=== PATIENT | male | born 1985 | race Caucasian/White ===

== ENCOUNTER 2020-09-22 08:12 | Outpatient (REF) | payer OTHER, SELFPAY ==
[2020-09-22 10:50] LABS: Anion Gap 13 (12-20); Blood Urea Nitrogen 14 mg/dL (9-16); Carbon Dioxide 24 mmol/L (22-29); Chloride 103 mmol/L (96-108); Cholesterol 209 mg/dL; Estimated Glomerular Filt Rate > 60; Glucose Fasting 89 mg/dL (60-99); HDL Cholesterol 47 mg/dL; LDL Cholesterol Calculated 139 mg/dl; Potassium 4.4 mmol/l (3.3-5.1); Sodium 136 mmol/L (135-145); Triglycerides 115 mg/dL
== END 2020-09-22 08:13 | disposition home or self-care (01) ==
LOC: HO.10HDL 08:12
PROVIDERS: Visit Provider Family Medicine
DX: I10 Essential (primary) hypertension (principal); E78.00 Pure hypercholesterolemia, unspecified; Z83.3 Family history of diabetes mellitus
CPT/HCPCS: 36415; 80051; 80061; 82565; 82947; 84520

== ENCOUNTER 2021-09-07 10:24 | Outpatient (REF) | payer OTHER, SELFPAY ==
[2021-09-07 14:26] LABS: Anion Gap 10 (12-20); Blood Urea Nitrogen 14 mg/dL (9-16); Carbon Dioxide 30 mmol/L (22-29); Chloride 102 mmol/L (96-108); Estimated Glomerular Filt Rate > 60; Potassium 4.9 mmol/L (3.3-5.1); Sodium 137 mmol/L (135-145)
== END 2021-09-07 10:25 | disposition home or self-care (01) ==
LOC: HO.10HDL 10:24
PROVIDERS: Visit Provider Family Medicine
DX: I10 Essential (primary) hypertension (principal)
CPT/HCPCS: 36415; 80051; 82565; 84520

== ENCOUNTER 2022-09-12 10:17 | Outpatient (REF) | payer OTHER, SELFPAY ==
[2022-09-12 15:19] LABS: Anion Gap 15 (12-20); Blood Urea Nitrogen 14 mg/dL (9-16); Carbon Dioxide 25 mmol/L (22-29); Chloride 102 mmol/L (96-108); Estimated Glomerular Filt Rate > 60; Potassium 4.7 mmol/L (3.3-5.1); Sodium 137 mmol/L (135-145)
== END 2022-09-12 10:18 | disposition home or self-care (01) ==
LOC: HO.10HDL 10:17
PROVIDERS: Internal Medicine Medical Oncology; Visit Provider Family Medicine
DX: I10 Essential (primary) hypertension (principal)
CPT/HCPCS: 36415; 80051; 82565; 84520

== ENCOUNTER 2022-09-12 10:27 | Outpatient (REF) | payer OTHER, SELFPAY ==
--- NOTE | ~2022-09-12 | XR_ITS ---
EXAMINATION: XR KNEE, LEFT CLINICAL INFORMATION: Left knee pain. COMPARISON: None TECHNIQUE: Four views of the left knee. FINDINGS: Bones and soft tissues appear unremarkable. No fracture or joint effusion appreciated. Alignment is anatomic. Joint spaces are well maintained. No abnormal soft tissue calcification. XR/XR knee LT 4V IMPRESSION: Normal plain film examination of the left knee.
== END 2022-09-12 10:28 | disposition home or self-care (01) ==
LOC: HO.XRAY 10:27
PROVIDERS: PCP Family Medicine; Visit Provider Family Medicine
DX: M25.562 Pain in left knee (principal)
CPT/HCPCS: 73564

== ENCOUNTER 2023-04-20 10:40 | Emergency (ER) | payer OTHER, SELFPAY ==
[2023-04-20 11:40] VITALS: BP 135/74; PULSE 61; RESP 17; TEMP 36.4; O2SAT 97; BMI 35.7
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
== END 2023-04-20 12:08 | disposition home or self-care (01) ==
PROVIDERS: Emergency Provider Emergency Medicine Emergency Medical Services; PCP Family Medicine
DX: S13.4XXA Sprain of ligaments of cervical spine, initial encounter (principal); M54.50 Low back pain, unspecified; V43.52XA Car driver injured in collision with other type car in traffic accident, initial encounter; Y93.9 Activity, unspecified; Y92.410 Unspecified street and highway as the place of occurrence of the external cause; Y99.9 Unspecified external cause status
CPT/HCPCS: 99282; 99283

== ENCOUNTER 2023-05-04 08:57 | Outpatient (REF) | payer OTHER, SELFPAY ==
[2023-05-04 10:52] LABS: Anion Gap 10 (12-20); Blood Urea Nitrogen 10 mg/dL (9-16); Carbon Dioxide 25 mmol/L (22-29); Chloride 106 mmol/L (96-108); Cholesterol 193 mg/dL (<200); Estimated Glomerular Filt Rate > 60; Glucose Fasting 97 mg/dL (60-99); HDL Cholesterol 46 mg/dL (>40); LDL Cholesterol Calculated 123 mg/dL (<100); Potassium 4.1 mmol/L (3.3-5.1); Sodium 137 mmol/L (135-145); Triglycerides 121 mg/dL (<150)
== END 2023-05-04 08:58 | disposition home or self-care (01) ==
LOC: HO.10HDL 08:57
PROVIDERS: Visit Provider Family Medicine
DX: I10 Essential (primary) hypertension (principal); E78.00 Pure hypercholesterolemia, unspecified
CPT/HCPCS: 36415; 80051; 80061; 82565; 82947; 84520

== ENCOUNTER 2023-10-12 10:40 | Outpatient (REF) | payer OTHER, SELFPAY ==
[2023-10-12 11:31] LABS: Anion Gap 10 (12-20); Blood Urea Nitrogen 15 mg/dL (9-16); Carbon Dioxide 26 mmol/L (22-29); Chloride 105 mmol/L (96-108); Estimated Glomerular Filt Rate > 60; Potassium 4.2 mmol/L (3.3-5.1); Sodium 137 mmol/L (135-145)
== END 2023-10-12 10:41 | disposition home or self-care (01) ==
LOC: HO.10HDL 10:40
PROVIDERS: Visit Provider Family Medicine
DX: I10 Essential (primary) hypertension (principal)
CPT/HCPCS: 36415; 80051; 82565; 84520

== ENCOUNTER 2024-05-09 09:16 | Outpatient (REF) | payer OTHER, SELFPAY ==
[2024-05-09 10:29] LABS: Alanine Aminotransferase 19 U/L (0-40); Albumin Level 4.4 g/dL (3.5-5.0); Alkaline Phosphatase 89 U/L (39-117); Anion Gap 13 (12-20); Aspartate Amino Transferase 17 U/L (5-37); Bilirubin Total 0.4 mg/dL (0.0-1.0); Blood Urea Nitrogen 12 mg/dL (9-16); Calcium 10.2 mg/dL (8.4-10.2); Carbon Dioxide 27 mmol/L (22-29); Chloride 106 mmol/L (96-108); Estimated Glomerular Filt Rate > 60; Glucose Random 76 mg/dL (60-115); Potassium 3.7 mmol/L (3.3-5.1); Sodium 142 mmol/L (135-145); Total Protein 7.4 g/dL (6.5-8.0)
== END 2024-05-09 09:17 | disposition home or self-care (01) ==
LOC: HO.LAB 09:16
PROVIDERS: PCP Family Medicine; Visit Provider Family Medicine
DX: I10 Essential (primary) hypertension (principal); E66.9 Obesity, unspecified
CPT/HCPCS: 36415; 80053

== ENCOUNTER 2024-12-26 11:38 | Outpatient (REF) | payer OTHER, SELFPAY ==
[2024-12-26 13:46] LABS: Anion Gap 12 (12-20); Blood Urea Nitrogen 14 mg/dL (9-16); Carbon Dioxide 25 mmol/L (22-29); Chloride 104 mmol/L (96-108); Estimated Glomerular Filt Rate > 60; Potassium 4.4 mmol/L (3.3-5.1); Sodium 137 mmol/L (135-145)
== END 2024-12-26 11:39 | disposition home or self-care (01) ==
LOC: HO.10HDL 11:38
PROVIDERS: Visit Provider Family Medicine
DX: I10 Essential (primary) hypertension (principal)
CPT/HCPCS: 36415; 80051; 82565; 84520

== ENCOUNTER 2025-03-02 12:50 | Outpatient (AMB) | payer OTHER, SELFPAY ==
[2025-03-02 13:06] VITALS: BP 120/76; PULSE 80; O2SAT 95; BMI 34.6
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
== END 2025-03-02 13:58 | disposition home or self-care (01) ==
LOC: HO.HSMS 12:51
PROVIDERS: PCP Family Medicine; Visit Provider Physician Assistant Medical
DX: G47.19 Other hypersomnia (principal); R29.6 Repeated falls
CPT/HCPCS: 99204

== ENCOUNTER → 2025-03-02 12:50 | Outpatient (BNVA) | payer OTHER, SELFPAY | PROVIDERS: PCP Family Medicine; Visit Provider Physician Assistant Medical | DX: R29.6 Repeated falls (principal); G47.19 Other hypersomnia; G47.9 Sleep disorder, unspecified | CPT/HCPCS: 99202 ==

== ENCOUNTER 2025-03-13 08:47 | Outpatient (REF) | payer OTHER, SELFPAY ==
--- NOTE | ~2025-03-13 | XR_ITS ---
CLINICAL HISTORY: R29.6 - Repeated falls Exam: AP, lateral, swimmer's lateral, and open-mouth odontoid views of the cervical spine. Comparison: None provided. Findings: Bony alignment of the cervical vertebral bodies is grossly anatomic. Please note that the cervicothoracic junction is not well visualized on the lateral view. Swimmer's lateral view was performed which demonstrates grossly anatomic alignment. However, there is poor bone detail at the cervicothoracic junction on the swimmer's lateral view. No prevertebral soft tissue swelling. No discrete fracture. Disc space heights are well preserved. Impression: No fracture identified given the limited visualization of the cervicothoracic junction. If there is appropriate clinical concern for fracture, CT of the cervical spine is suggested. This document has been electronically signed by: Toni Rocha MD on 03/14/2025 08:29:02
[2025-03-13 09:14] LABS: Hematocrit 42.6 % (42.0-52.0); Hemoglobin 14.6 g/dl (14.0-18.0); Mean Corpuscular HGB Conc 34.3 g/dl (31.0-36.0); Mean Corpuscular Hemoglobin 29.3 pg (27.0-33.0); Mean Corpuscular Volume 85.4 fL (80.0-98.0); NRBC Abs Auto 0.000 X10*3/uL (0.0-0.012); NRBC Pct Auto 0.0 /100WBC (0.0-0.2); Platelet Count 249 X10*3/uL (160-400); Red Blood Count 4.99 X10*6/uL (4.60-5.80); White Blood Count 8.4 X10*3/uL (4.8-10.8)
[2025-03-13 09:25] LABS: Hemoglobin A1C 130.3354 umol/L; Total Hemoglobin (HGBA1C) 3718.5994 umol/L
[2025-03-13 09:45] LABS: Alanine Aminotransferase 18 U/L (0-40); Albumin Level 4.5 g/dL (3.5-5.0); Alkaline Phosphatase 75 U/L (39-117); Anion Gap 10 (12-20); Aspartate Amino Transferase 20 U/L (5-37); Blood Urea Nitrogen 18 mg/dL (9-16); Calcium 9.2 mg/dL (8.4-10.2); Carbon Dioxide 26 mmol/L (22-29); Chloride 108 mmol/L (96-108); Estimated Glomerular Filt Rate > 60; Iron 72 mcg/dL (45-160); Percent Iron Saturation 30 % (15-50); Potassium 4.6 mmol/L (3.3-5.1); Sodium 139 mmol/L (135-145); Total Iron Binding Capacity 239 mcg/dL (228-428); Total Protein 7.3 g/dL (6.5-8.0); Unsaturated Iron Binding 167 ug/dL
[2025-03-13 10:06] LABS: Ferritin 159 ng/mL (20-250)
== END 2025-03-13 08:48 | disposition home or self-care (01) ==
LOC: HO.LAB 08:47
PROVIDERS: PCP Physician Assistant; Visit Provider Physician Assistant Medical
DX: G47.19 Other hypersomnia (principal); R53.83 Other fatigue; G47.9 Sleep disorder, unspecified; R29.6 Repeated falls
CPT/HCPCS: 36415; 72040; 80053; 82306; 82728; 83036; 83090; 83540; 83921; 84443; 85027

== ENCOUNTER → 2025-03-13 09:03 | Outpatient (BNV) | payer OTHER, SELFPAY | PROVIDERS: PCP Physician Assistant; Visit Provider Radiology Diagnostic Radiology | DX: R29.6 Repeated falls (principal) | CPT/HCPCS: 72040 ==

== ENCOUNTER 2025-03-24 17:08 | Emergency (ER) | payer OTHER, SELFPAY ==
[2025-03-24] VITALS (10 sets, daily range): BP systolic 120–166; BP diastolic 51–83; PULSE 70–98; RESP 16–20; TEMP 37.3–38.3; O2SAT 93–97; BMI 32.9
--- NOTE | ~2025-03-24 | XR_ITS ---
CLINICAL HISTORY: shortness of breath, cough Two views of the chest. COMPARISON: None provided. FINDINGS: Normal heart and mediastinal contours. Airspace opacity within the right lower lobe. No pleural effusion or pneumothorax. No fracture identified. IMPRESSION: 1. Right lower lobe pneumonia. This document has been electronically signed by: Reinier Yang MD on 03/24/2025 18:20:20
--- NOTE | 2025-03-24 17:46 | ED.GENADULT ---
HPI - General Adult General Chief complaint: Upper Respiratory Symptoms Stated complaint: flu like symptoms/high fever Time Seen by Provider: 03/24/25 18:17 Source: patient Limitations: no limitations History of Present Illness ED Provider: Diamond Farah PA-C HPI narrative: 39-year-old male with a history of hypertension presents with fever. Patient states he has been feeling poorly over the past week, associated dry repetitive cough, nausea vomiting at times, fever and generalized malaise. Patient was seen at urgent care yesterday, found to have pneumonia, he was placed on doxycycline. Patient states his fevers have been refractory, noting fevers of 103 at home, he is also not tolerating the doxycycline, it triggers vomiting. Patient denies history of asthma or COPD, no tobacco abuse history. Related Data Home Medications ?Medication ?Instructions ?Recorded ?Confirmed lisinopril 20 mg tablet 20 mg PO DAILY 02/23/25 03/24/25 lorazepam 0.5 mg tablet (Ativan) 0.5 mg PO Q8H PRN Anxiety 02/23/25 03/24/25 betamethasone dipropionate 0.05 % 1 appl topical BID 03/24/25 03/24/25 topical cream doxycycline hyclate 100 mg capsule 100 mg PO BID 03/24/25 03/24/25 ondansetron 4 mg disintegrating 4 mg PO Q8H PRN Nausea 03/24/25 03/24/25 tablet Previous Rx's ?Medication ?Instructions ?Recorded azithromycin 250 mg tablet 250 mg PO DAILY 4 days #4 tabs 03/24/25 cefuroxime axetil 500 mg tablet 500 mg PO Q12H #20 tabs 03/24/25 codeine 10 mg-guaifenesin 100 mg/5 10 ml PO Q4-6H PRN cough #120 mL 03/24/25 mL oral liquid (Guaifenesin AC) ondansetron 4 mg disintegrating 4 mg PO Q8H PRN nausea and 03/24/25 tablet vomiting #10 tabs Allergies Allergy/AdvReac Type Severity Reaction Status Date / Time No Known Allergies Allergy Verified 03/24/25 17:44 [facility] Past Medical History Medical History Pure hypercholesterolemia, unspecified Essential (primary) hypertension Obesity, unspecified Solitary pulmonary nodule Panic disorder [episodic paroxysmal anxiety] Other migraine, not intractable, without status migrainosus Other synovitis and tenosynovitis, left shoulder Gastro-esophageal reflux disease without esophagitis Ophthalmoplegic migraine, not intractable Calcaneal spur, right foot Dorsalgia, unspecified Morbid (severe) obesity due to excess calories Social History Social History Advance Directives: No Advance Directives Information Provided: No Do you have a plan to hurt others: No Plan Physical Exam ED Vital Signs: Vital Signs - 24 hr 03/24/25 17:42 03/24/25 18:40 03/24/25 18:56 Temperature 100.9 F H 99.6 F 100.5 F H Pulse Rate 98 83 81 Respiratory Rate 20 16 18 Blood Pressure 166/78 H 126/80 132/74 Pulse Oximetry 93 94 95 Oxygen Delivery Method Room Air Room Air Room Air 03/24/25 20:11 03/24/25 20:26 03/24/25 20:41 Temperature 99.1 F Pulse Rate 72 71 70 Respiratory Rate 16 16 16 Blood Pressure 137/81 123/81 138/83 Pulse Oximetry 95 97 97 Oxygen Delivery Method Room Air Room Air Room Air 03/24/25 20:56 03/24/25 21:04 Temperature Pulse Rate 73 70 Respiratory Rate 16 16 Blood Pressure 120/51 L 125/76 Pulse Oximetry 96 96 Oxygen Delivery Method Room Air Room Air BMI result Body Mass Index 32.9 Course Course Course Narrative: This is an RME performed by Donnie Ahuja CNP: Additional HPI, ROS, PE not included below will be deferred to primary provider. Patient is a 39-year-old male who presents emergency department for evaluation. With a past 4 days has been feeling generally unwell, started with a fever, symptoms continued on having cough, shortness of breath, posttussive emesis. He went to urgent care yesterday tested negative for COVID and flu, was advised that he has pneumonia based on CXR, has taken 3 doses of doxycycline. He states he has not been able to drink much water without vomiting. Expresses concern regarding his fevers, has had temp picture as high as 103.8, reports an hour after with the Tylenol it is only down 1 degree and then 2 hours later it is back up to <102, doesnt think the fever has broken. Took acetaminophen at 16:00, ibuprofen at 10:00 Patient meeting SIRS criteria, lactic acid and blood cultures to be obtained in addition to serum labs, repeat CXR, charge histotechnologist made aware, Reevaluation(s) Reevaluation #1: At 6:29 p.m. on March 24 of the sepsis focused exam was performed, in addition to screening labs, blood cultures lactic were obtained chest x-ray already completed, we will start fluids, giving Toradol for fever, adding azithromycin and ceftriaxone Time: 18: Reevaluation #2: ambulated the patient, no drop in o2 Medications Administered Discontinued Medications Generic Name Dose Route Start Last Admin Trade Name Freq PRN Reason Stop Dose Admin Ceftriaxone Sodium 2 gm 03/24/25 18:03/24/25 18:40 Ceftriaxone Sodium 2 Gm Vial IVPUSH 03/24/25 18:30 2 gm ONCE ONE Administration Sodium Chloride 1,000 mls @ 999 mls/hr 03/24/25 18:30 03/24/25 19:40 Ns IV 03/24/25 19:30 Infused .Q1H1M BILL Infusion Azithromycin 500 mg/ Sodium 250 mls @ 125 mls/hr 03/24/25 18:29 03/24/25 20:47 Chloride IV 03/24/25 20:28 Infused ONCE ONE Infusion Ibuprofen 600 mg 03/24/25 17:50 03/24/25 18:22 Ibuprofen 600 Mg Tablet PO 03/24/25 17:51 600 mg ONCE ONE Administration Ketorolac Tromethamine 15 mg 03/24/25 18:29 03/24/25 18:39 Ketorolac Tromethamine 15 Mg/Ml Vial IVPUSH 03/24/25 18:30 15 mg ONCE ONE Administration Medical Decision Making Medical Decision Making [facility] Narrative: 39-year-old male with a history of hypertension presents with fever. Patient states he has been feeling poorly over the past week, associated dry repetitive cough, nausea vomiting at times, fever and generalized malaise. Patient was seen at urgent care yesterday, found to have pneumonia, he was placed on doxycycline. Patient states his fevers have been refractory, noting fevers of 103 at home, he is also not tolerating the doxycycline, it triggers vomiting. Patient denies history of asthma or COPD, no tobacco abuse history. No relevant chronic issues History: Per patient I have considered the following differential diagnoses: Pneumonia, bronchitis, viral syndrome, sepsis Plan: Patient already has no pneumonia, he is febrile here in the ER 100.9, sepsis of concern, in addition to screening labs, blood cultures and lactic were obtained, the chest x-ray does already complete. We will be giving IV fluid, Toradol as he already had Tylenol pre arrival, starting azithromycin and ceftriaxone. I do not foresee him requiring admission given he is a young healthy individual who was not immunocompromised. We will reassess once IV therapy is complete. I have independently reviewed the following tests: Labs: No overall leukocytosis, left shift noted, not anemic, no electrolyte abnormality, lactic 1.2 Chest x-ray: FINDINGS: Normal heart and mediastinal contours. Airspace opacity within the right lower lobe. No pleural effusion or pneumothorax. No fracture identified. IMPRESSION: 1. Right lower lobe pneumonia. EKG: Normal sinus rhythm rate of 91, no ischemic changes no ectopy QTC 415 Lab Data 03/24/25 18:14 03/24/25 18:14 Labs: Lab Results 03/24/25 Range/Units 18:14 WBC 7.3 (4.8-10.8) X10*3/uL RBC 4.92 (4.60-5.80) X10*6/uL Hgb 14.3 (14.0-18.0) g/dl Hct 41.1 L (42.0-52.0) % MCV 83.5 (80.0-98.0) fL MCH 29.1 (27.0-33.0) pg MCHC 34.8 (31.0-36.0) g/dl RDW 13.2 (11.0-16.0) % Plt Count 245 (160-400) X10*3/uL MPV 9.8 (9.4-12.4) fL Immature Gran % (Auto) 1.6 H (0.0-0.4) % Neut % (Auto) 75.6 H (45-73) % Lymph % (Auto) 12.0 L (20-40) % Ward % (Auto) 8.9 (2-11) % Eos % (Auto) 1.5 (0-4) % Baso % (Auto) 0.4 (0-2) % Lymph # (Auto) 0.9 L (1.2-4.9) X10*3/uL Ward # (Auto) 0.7 (0.1-1.2) X10*3/uL Eos # (Auto) 0.1 (0.0-0.4) X10*3/uL Baso # (Auto) 0.0 (0.0-0.2) X10*3/uL Abs Immat Gran (auto) 0.12 H (0.00-0.03) X10*3/uL Absolute Neuts (auto) 5.6 (2.0-8.3) x10*3/uL Absolute Nucleated RBC 0.000 (0.0-0.012) X10*3/uL Nucleated RBC % (auto) 0.0 (0.0-0.2) /100WBC Sodium 136 (135-145) mmol/L Potassium 3.5 D (3.3-5.1) mmol/L Chloride 103 (96-108) mmol/L Carbon Dioxide 23 (22-29) mmol/L Anion Gap 14 (12-20) BUN 18 H (9-16) mg/dL Creatinine 0.86 (0.5-1.4) mg/dL Estim Creat Clear Calc 124.3 Estimated GFR > 60 Random Glucose 119 H (60-115) mg/dL Lactic Acid 1.2 (0.5-2.0) mmol/L Calcium 9.6 (8.4-10.2) mg/dL Magnesium 2.2 (1.6-2.6) mg/dL Total Bilirubin 0.3 (0.0-1.0) mg/dL AST 28 (5-37) U/L ALT 22 (0-40) U/L Alkaline Phosphatase 81 (39-117) U/L Troponin I High Sens 3.7 (<3.5-35.0) ng/L Total Protein 7.3 (6.5-8.0) g/dL Albumin 4.0 (3.5-5.0) g/dL Lipase 33 (8-78) U/L Discharge Plan Discharge Clinical Impression: Pneumonia Patient Disposition: Home, Self-Care Instructions: Community Acquired Pneumonia (ED) Additional Instructions: You were found to have a right lower lobe pneumonia. See home care instructions. Use the azithromycin as directed, use the cefuroxime seen as directed, complete the course of each antibiotic. Discontinue the use of the doxycycline. Uses Zofran as needed for nausea. Use the cough syrup as needed as a cough suppressant and expectorant. Follow up with your primary care provider as needed Prescriptions: New cefuroxime axetil 500 mg tablet 500 mg PO Q12H Qty: 20 0RF azithromycin 250 mg tablet 250 mg PO DAILY 4 Days Qty: 4 0RF Rx Instructions: start on day 2 of therapy ondansetron 4 mg tablet,disintegrating 4 mg PO Q8H PRN (Reason: nausea and vomiting) Qty: 10 0RF codeine-guaifenesin [Guaifenesin AC] 10-100 mg/5 mL liquid 10 ml PO Q4-6H PRN (Reason: cough) Qty: 120 0RF No Action doxycycline hyclate 100 mg capsule 100 mg PO BID betamethasone dipropionate 0.05 % cream 1 appl topical BID ondansetron 4 mg tablet,disintegrating 4 mg PO Q8H PRN (Reason: Nausea) lisinopril 20 mg tablet 20 mg PO DAILY lorazepam [Ativan] 0.5 mg tablet 0.5 mg PO Q8H PRN (Reason: Anxiety) Print Language: Sinhala
--- NOTE | 2025-03-24 17:50 | ECG_ITS ---
Test Reason : sob Blood Pressure : */* mmHG Vent. Rate : 91 BPM Atrial Rate : 91 BPM P-R Int : 158 ms QRS Dur : 106 ms QT Int : 338 ms P-R-T Axes : 44 8 14 degrees QTcB Int : 415 ms Normal sinus rhythm Possible Left atrial enlargement Borderline ECG No previous ECGs available Referred By: Becky Ahuja Electronically Signed By: CEE MODI MD
[2025-03-24 18:22] LABS: MANUAL DIFF FLAG NO
[2025-03-24 18:24] LABS: Hematocrit 41.1 % (42.0-52.0); Hemoglobin 14.3 g/dl (14.0-18.0); Imm Gran Abs Auto 0.12 X10*3/uL (0.00-0.03); Imm Gran Pct Auto 1.6 % (0.0-0.4); Lymphocytes Absolute Auto 0.9 X10*3/uL (1.2-4.9); Mean Corpuscular HGB Conc 34.8 g/dl (31.0-36.0); Mean Corpuscular Hemoglobin 29.1 pg (27.0-33.0); Mean Corpuscular Volume 83.5 fL (80.0-98.0); NRBC Abs Auto 0.000 X10*3/uL (0.0-0.012); NRBC Pct Auto 0.0 /100WBC (0.0-0.2); Platelet Count 245 X10*3/uL (160-400); Red Blood Count 4.92 X10*6/uL (4.60-5.80); White Blood Count 7.3 X10*3/uL (4.8-10.8)
[2025-03-24 18:50] LABS: Alanine Aminotransferase 22 U/L (0-40); Albumin Level 4.0 g/dL (3.5-5.0); Alkaline Phosphatase 81 U/L (39-117); Anion Gap 14 (12-20); Aspartate Amino Transferase 28 U/L (5-37); Blood Urea Nitrogen 18 mg/dL (9-16); Calcium 9.6 mg/dL (8.4-10.2); Carbon Dioxide 23 mmol/L (22-29); Chloride 103 mmol/L (96-108); Creatinine Clr Calc Pharmacy 124.3; Estimated Glomerular Filt Rate > 60; Lipase 33 U/L (8-78); Magnesium 2.2 mg/dL (1.6-2.6); Potassium 3.5 mmol/L (3.3-5.1); Sodium 136 mmol/L (135-145); Total Protein 7.3 g/dL (6.5-8.0)
[2025-03-24 21:27] LABS: Troponin-I High Sensitivity 3.7 ng/L (<3.5-35.0)
--- NOTE | 2025-03-24 21:42 | PC.NURSE ---
TRISTIN Farah speaking with patient and family at this time.
[2025-03-24] MEDS: guaiFEN/Codeine SF 200/20/10ML 10 ML LIQUID PO (21:55)
== END 2025-03-24 22:01 | disposition home or self-care (01) ==
PROVIDERS: Nurse Practitioner Family; Physician Assistant Medical; Emergency Provider Emergency Medicine; PCP Physician Assistant
DX: J18.9 Pneumonia, unspecified organism (principal); R50.9 Fever, unspecified; R05.9 Cough, unspecified; R11.2 Nausea with vomiting, unspecified; I10 Essential (primary) hypertension; E78.00 Pure hypercholesterolemia, unspecified; Z79.899 Other long term (current) drug therapy
CPT/HCPCS: 36415; 71046; 80053; 83605; 83690; 83735; 84484; 85025; 87040; 93005; 96361; 96365; 96375; 99284; J0456; J0696; J1885

== ENCOUNTER → 2025-03-24 17:50 | Outpatient (BNV) | payer OTHER, SELFPAY | PROVIDERS: Emergency Provider Emergency Medicine; PCP Physician Assistant; Visit Provider Internal Medicine Cardiovascular Disease | DX: R06.02 Shortness of breath (principal) | CPT/HCPCS: 93010 ==

== ENCOUNTER → 2025-03-24 17:51 | Outpatient (BNV) | payer OTHER, SELFPAY | PROVIDERS: Emergency Provider Emergency Medicine; PCP Physician Assistant; Visit Provider Radiology Diagnostic Radiology | DX: J18.1 Lobar pneumonia, unspecified organism (principal) | CPT/HCPCS: 71046 ==

== ENCOUNTER 2025-04-28 08:23 | Outpatient (REF) | payer OTHER, SELFPAY ==
--- NOTE | 2025-04-28 08:23 | EMG_ITS ---
Bilateral median and ulnar motor and sensory studies were performed bilateral radial sensory study was performed and bilateral median and lateral antecubital brachial sensory studies were performed. EMG needle examination was performed. Impression: 1. Mild bilateral ulnar neuropathy across cubital tunnel 2. No evidence of median neuropathy MTDD
== END 2025-04-28 08:24 | disposition home or self-care (01) ==
LOC: HO.NEURO 08:23
PROVIDERS: PCP Physician Assistant; Visit Provider Physician Assistant Medical
DX: G56.23 Lesion of ulnar nerve, bilateral upper limbs (principal); R20.0 Anesthesia of skin
CPT/HCPCS: 95886; 95913

== ENCOUNTER → 2025-04-28 08:23 | Outpatient (BNV) | payer OTHER, SELFPAY | PROVIDERS: PCP Physician Assistant; Visit Provider Psychiatry & Neurology Neurology | DX: G56.23 Lesion of ulnar nerve, bilateral upper limbs (principal) | CPT/HCPCS: 95886; 95912 ==

== ENCOUNTER 2025-05-01 08:04 | Outpatient (AMB) | payer OTHER, SELFPAY ==
--- NOTE | 2025-05-01 08:15 | MHC.PC.OV ---
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 Accompanied by: Self / Same As Patient Allergies No Known Allergies Allergy (Verified 05/01/25 08:16) Tobacco use date assessed: 05/01/25 Dental Screening Dental Screen Date: 05/01/25 Did you have a dental visit in the last 12 months?: No Did you have a dental problem in the last 6 months where you did not have access to dental care?: No Was dental information given to patient?: No HPI HPI Comments History of Present Illness Details 39-year-old male with history of hypertension, migraines, pulmonary nodule, GERD, anxiety, obesity presents to the office today for management of chronic conditions and to establish care. Anxiety-managed with lorazepam p.r.n. Very rare, can be seasonal/work related when slow and idle. Hypertension-managed with lisinopril 20 mg daily. Blood pressure in the office 140/84, recheck 120/80 Pulmonary nodule- 15 years ago, seen on CT for nephrolithiasis. 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 Follows a healthy diet. Not losing weight. Concerns: Insomnia- sleep study pending. Intermittent. His neurologist is working up for sleep apnea. He does endorse intermittent sleeping as well as intermittent apneic episodes. Not interested in medications at this time Health maintenance: Colonoscopies was started age 43 ROS: See HPI EXAM: Constitutional - Awake and Alert, No apparent distress Eyes - PERRL Mouth/throat-left tonsil with 3-4 +enlargement. Right tonsil 1+ Cardiovascular - S1S2, RRR, No edema Respiratory - Normal lung expansion, Normal respiratory effort, No respiratory distress, CTA bilaterally Extremities - no calf tenderness bilaterally, no swelling Skin - Warm/Dry Neurological - Alert & oriented x3 Psychological - Appropriate affect [facility] Medical History (Updated 05/01/25 @ 08:45 by RTISTIN Busby) Pure hypercholesterolemia, unspecified Essential (primary) hypertension Obesity, unspecified Solitary pulmonary nodule Panic disorder [episodic paroxysmal anxiety] Other migraine, not intractable, without status migrainosus Other synovitis and tenosynovitis, left shoulder Gastro-esophageal reflux disease without esophagitis Ophthalmoplegic migraine, not intractable Calcaneal spur, right foot Dorsalgia, unspecified Morbid (severe) obesity due to excess calories Social History Housing: House Patient Tobacco Use Status: Never used Tobacco e-Cigarette/Vaping Use: Never Used service: No Current occupational status: employed Cognitive needs: No Hearing needs: No Vision needs: No Questionnaire PHQ-9 Over the last 2 weeks, how often have you been bothered by any of the following problems? 1. Little interest or pleasure in doing things: not at all 2. Feeling down, depressed, or hopeless: not at all 3. Trouble falling or staying asleep, or sleeping too much: several days 4. Feeling tired or having little energy: several days 5. Poor appetite or overeating: not at all 6. Feeling bad about yourself - or that you are a failure or have let yourself or your family down: not at all 7. Trouble concentrating on things, such as reading the newspaper or watching television: not at all 8. Moving or speaking so slowly that other people could have noticed. Or the opposite - being so fidgety or restless that you have been moving around a lot more than usual: not at all 9. Thoughts that you would be better off or of hurting yourself in some way: not at all Total score: 2 Source: Developed by Drs. Olvin Llanos, Niya Vizcaino, Naif Barclay and colleagues, with an educational jose from [employer]. Thrive Questionnaire Date Thrive assessed: 05/01/25 I am a: Patient What is your living situation today?: I have a steady place to live Within the past 12 months, did the food you bought not last and you didn't have the money to get more?: Never true Within the past 12 months, did you worry whether your food would run out before you got money to buy more?: Never true Do you have trouble paying for medicines?: No Do you have trouble getting transportation to medical appointments?: No Do you have trouble paying your heating and electricity bill?: No Do you have trouble taking care of your child, family member or friend?: No Do you have trouble with day-to-day activities such as bathing, preparing meals, shopping, managing finances, etc.?: No Are you currently unemployed and looking for a job?: No Are you interested in more education?: No Please select the resources that you would like help with: None THRIVE Score: 0 GENEVA-7 AMB Questionnaire GENEVA-7 Date GENEVA - 7 assessed: 05/01/25 Feeling nervous, anxious, or on edge: 0 = Not at all Not being able to stop or control worryin = Not at all Worrying too much about different things: 0 = Not at all Trouble relaxin = Several days Being so restless that it is hard to sit still: 1 = Several days Becoming easily annoyed or irritable: 0 = Not at all Feeling afraid as if something awful might happen: 0 = Not at all Total GENEVA-7 score (0-4 normal; 5-9 mild; 10-14 moderate; 15-21 severe): 2 Source: Developed by Drs. Olvin Llanos, Niya Vizcaino, Naif Barclay and colleagues, with an educational jose from [employer]. Physical exam (Primary Care) Vital Signs: Last Vital Signs Temp 98.3 F 05/01/25 08:21 Pulse 70 05/01/25 08:21 BP 140/84 H 05/01/25 08:21 Pulse Ox 98 05/01/25 08:21 Oxygen Delivery Method Room Air 05/01/25 08:21 BMI result Body Mass Index 34.5 Tobacco/Smoking Status: Tobacco use Status Tobacco use date assessed 05/01/25 05/01/25 08:27 Patient Tobacco Use Status Never used Tobacco 05/01/25 08:27 e-Cigarette/Vaping Use Never Used 05/01/25 08:27 PHQ-9: PHQ-9 Score PHQ-9: Total score 2 05/01/25 08:27 Thrive Assessment: Date of Thrive Assessment Date Thrive assessed 05/01/25 05/01/25 08:27 Coding Level of Care Code New Pt Level 4 (46984) Diagnoses Panic disorder [episodic paroxysmal anxiety] F41.0 Essential (primary) hypertension I10 Obesity, unspecified E66.9 Excessive daytime sleepiness G47.19 Assessment & Plan Assessment & Plan (1) Panic disorder [episodic paroxysmal anxiety]: Code(s): F41.0 - Panic disorder [episodic paroxysmal anxiety] Category: Medical Plan: Overall stable, seasonal. Can use lorazepam as needed (2) Essential (primary) hypertension: Code(s): I10 - Essential (primary) hypertension Category: Medical Plan: Controlled on recheck. Continue lisinopril 20 mg daily (3) Obesity, unspecified: Code(s): E66.9 - Obesity, unspecified Category: Medical Plan: Continue with healthy lifestyle, regular exercise and healthy diet (4) Excessive daytime sleepiness: Code(s): G47.19 - Other hypersomnia Category: Medical Plan: Awaiting results of sleep study. Should sleep study be negative, can refer to ENT given tonsillitis. Declines sleep medication at this time, consider in the future Plan Follow-up in 6 months with labs completed prior to visit Orders: Orders Basic Metabolic Panel 6 Months E66.9 - Obesity, unspecified, I10 - Essential (primary) hypertension Lipid Panel 6 Months E66.9 - Obesity, unspecified, I10 - Essential (primary) hypertension Liver Panel 6 Months E66.9 - Obesity, unspecified, I10 - Essential (primary) hypertension IRON PROFILE 6 Months E66.9 - Obesity, unspecified, I10 - Essential (primary) hypertension TSH reflex Free T4 6 Months E66.9 - Obesity, unspecified, I10 - Essential (primary) hypertension
[2025-05-01 08:21] VITALS: BP 140/84; PULSE 70; TEMP 36.8; O2SAT 98; BMI 34.5
[2025-05-01 08:41] VITALS: BP 120/80
== END 2025-05-01 08:46 | disposition home or self-care (01) ==
LOC: HO.HMCHD 08:05
PROVIDERS: PCP Family Medicine; Visit Provider Physician Assistant
DX: F41.0 Panic disorder [episodic paroxysmal anxiety] (principal); I10 Essential (primary) hypertension; E66.9 Obesity, unspecified; G47.19 Other hypersomnia

== ENCOUNTER → 2025-05-01 08:04 | Outpatient (BNVA) | payer OTHER, SELFPAY | PROVIDERS: PCP Family Medicine; Visit Provider Physician Assistant | DX: F41.0 Panic disorder [episodic paroxysmal anxiety] (principal); I10 Essential (primary) hypertension; E66.9 Obesity, unspecified; Z68.34 Body mass index [BMI] 34.0-34.9, adult; G47.19 Other hypersomnia; Z79.899 Other long term (current) drug therapy; Z13.31 Encounter for screening for depression; Z13.39 Encounter for screening examination for other mental health and behavioral disorders | CPT/HCPCS: 99202 ==

== ENCOUNTER 2025-06-02 07:55 | Outpatient (AMB) | payer OTHER, SELFPAY ==
--- NOTE | 2025-06-02 08:02 | MHC.OFFVIS ---
Vital Signs 06/02/25 08:03 Height 5 ft 7 in Weight 223 lb 4 oz BMI 35.0 BP 128/88 Blood Pressure Location Rt brachial Position Sitting Pulse 71 Pulse Source Pulse Oximeter Pulse Oximetry (%) 96 Oxygen Delivery Method Room Air Intake Visit Reasons: 3 mo follow up Intake Note: Patient presents follow up KARYNA. Labs/x-ray in chart. No-showed HST 05/14. Patient states he tried calling but no calls back. Accompanied by: Self / Same As Patient Allergies No Known Allergies Allergy (Verified 06/02/25 08:05) HPI Comments Details: 39 year old male with chronic fatigue, referred to us for sleep apnea evaluation by his PCP. 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 arm crush injury, radius and ulnar compound fracture, ORIF with plates, rods, and pins placed. He feels exhausted daily, he goes to bed at 9:30, wakes up at 5am with zero bathroom breaks. He wakes up several times a night as he is a light sleeper and has difficulty going back to sleep. His tells him, he snores loudly and gasps for air when sleeping on his back. He would like to be evaluated by ENT due to large tonsils. He denies morning headaches, denies bruxism. memory is stable. He has a h/o panic attacks and anxiety which have significantly improved, he takes Ativan 0.5mg po maybe 1-2x/ month. BP is well controlled with lisinopril. He has RLS symptoms, paresthesias and an urge to move his legs at night due to discomfort and a sensation which crawls up his thighs. He has bilateral paresthesias of the arms and cubital tunnel syndrome r>l. He wakes up with both his arms numb and tingling. Inspite of living an active lifestyle, eating a clean diet, cooking at home, drinking lots of water, he can not lose weight. [facility] Medical History Pure hypercholesterolemia, unspecified Essential (primary) hypertension Obesity, unspecified Solitary pulmonary nodule Panic disorder [episodic paroxysmal anxiety] Other migraine, not intractable, without status migrainosus Other synovitis and tenosynovitis, left shoulder Gastro-esophageal reflux disease without esophagitis Ophthalmoplegic migraine, not intractable Calcaneal spur, right foot Dorsalgia, unspecified Morbid (severe) obesity due to excess calories Social History Housing: House Patient Tobacco Use Status: Never used Tobacco e-Cigarette/Vaping Use: Never Used service: No Current occupational status: employed Cognitive needs: No Hearing needs: No Vision needs: No Physical Exam Vital Signs: Last Vital Signs Pulse 71 06/02/25 08:03 BP 128/88 06/02/25 08:03 Pulse Ox 96 06/02/25 08:03 Oxygen Delivery Method Room Air 06/02/25 08:03 BMI result Body Mass Index 35.0 Const General: cooperative, comfortable and no acute distress Nutritional Appearance: obese Orientation/consciousness: patient oriented x3 HEENT Face and sinus: Yes face symmetric Teeth and gingiva: other (Mallampti score 4) Eyes Pupils: Equal, round and reactive pupils present Neck Neck: Yes full ROM Resp Effort & Inspection: normal respiratory effort and able to speak in complete sentences Neuro General: patient oriented x3 and moves all extremities Cranial nerves: Yes Equal, round and reactive pupils present, Yes Normal accommodation reflex present, Yes Nystagmus not present, Yes Normal facial strength present, Yes Midline tongue present, Yes Ability to bilaterally rotate head present (ROM limited r>l) and Yes Ability to bilaterally elevate shoulders present Cognition (Neuro): normal cognition Gait exam (Neuro): Normal gait present Motor exam (neuro): 5/5 motor strength present throughout and Normal motor muscle tone present throughout Psych Appearance: grossly normal Speech and movement: Normal speech and movement present Attitude: cooperative Insight: Good insight present (Psych) Judgement: Good judgement present (Psych) Results Reviewed Results Reviewed: We reviewed labs today. NCS / EMG Impression: 1. Mild bilateral ulnar neuropathy across cubital tunnel 2. No evidence of median neuropathy Assessment & Plan Assessment & Plan (1) Excessive daytime sleepiness: Code(s): G47.19 - Other hypersomnia Category: Medical (2) Loud snoring: Code(s): R06.83 - Snoring Category: Medical (3) Multiple falls: Code(s): R29.6 - Repeated falls Category: Medical (4) Low vitamin D level: Code(s): R79.89 - Other specified abnormal findings of blood chemistry Category: Medical (5) Chronic fatigue: Code(s): R53.82 - Chronic fatigue, unspecified Category: Medical Plan EMG / NCS reviewed with pt. Ulnar Neuropathy, he has wrist braces and will consider PT in the future. HST to r/o karyna Labs reviewed with pt. ENT evaluation Snoring due to enlarged tonsils RLS? Sciatica will monitor f/u in 2 months Orders: Orders Vitamin B12 and Folate Today R53.82 - Chronic fatigue, unspecified Homocysteine Today G47.9 - Sleep disorder, unspecified, R53.82 - Chronic fatigue, unspecified, R53.83 - Other fatigue RT home sleep study Today G47.19 - Other hypersomnia TSH reflex Free T4 Today R53.82 - Chronic fatigue, unspecified Methylmalonic Acid Today G47.9 - Sleep disorder, unspecified, R53.82 - Chronic fatigue, unspecified, R53.83 - Other fatigue Referrals Ear/Nose/Throat Referral G47.30 - Sleep apnea, unspecified, R06.83 - Snoring Medications: New cholecalciferol (vitamin D3) 50 mcg PO DAILY 120 caps 2RF low vitamin d levles 4 months MDD 50mcg R79.89 - Other specified abnormal findings of blood chemistry Coding Level of Care Code Est Pt Level 4 (71913) Diagnoses Excessive daytime sleepiness G47.19 Loud snoring R06.83 Multiple falls R29.6 Low vitamin D level R79.89 Chronic fatigue R53.82
[2025-06-02 08:03] VITALS: BP 128/88; PULSE 71; O2SAT 96; BMI 35.0
== END 2025-06-02 08:38 | disposition home or self-care (01) ==
LOC: HO.HSMS 07:55
PROVIDERS: PCP Family Medicine; Visit Provider Physician Assistant Medical
DX: G47.19 Other hypersomnia (principal); R06.83 Snoring; R29.6 Repeated falls; R79.89 Other specified abnormal findings of blood chemistry; R53.82 Chronic fatigue, unspecified
CPT/HCPCS: 99214

== ENCOUNTER → 2025-06-02 07:55 | Outpatient (BNVA) | payer OTHER, SELFPAY | PROVIDERS: PCP Family Medicine; Visit Provider Physician Assistant Medical | DX: G47.19 Other hypersomnia (principal); R06.83 Snoring; R53.82 Chronic fatigue, unspecified; R79.89 Other specified abnormal findings of blood chemistry; R29.6 Repeated falls; I10 Essential (primary) hypertension; E66.9 Obesity, unspecified; Z68.35 Body mass index [BMI] 35.0-35.9, adult | CPT/HCPCS: 99212 ==

== ENCOUNTER 2025-07-31 09:24 | Outpatient (AMB) | payer OTHER, SELFPAY ==
--- NOTE | 2025-07-31 09:26 | MHC.OFFVIS ---
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 HST is pending Aug 12 he had to reschedule due to work schedules. 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 arm crush injury to the radius and ulnar compound fracture with ORIF, plates, rods, and pins placed. He feels exhausted daily, he goes to bed at 9:30, wakes up at 5am with zero bathroom breaks. He wakes up several times a night as he is a light sleeper and has difficulty going back to sleep. His tells him he snores loudly and gasps for air when sleeping on his back. ENT evaluation is pending due to large tonsils. Memory is stable. He has a h/o panic attacks and anxiety which gets worse in the Summer due to demands of work, he takes Ativan 0.5mg prn. He has bilateral paresthesias of the arms and cubital tunnel syndrome r>l, and it is not bothersome at this time. He has RLS symptoms, paresthesias and an urge to move his legs at night due to discomfort and a sensation which crawls up his thighs, r>l. Inspite of living an active lifestyle, doing manual labor getting 18,000 steps, eating a clean diet, cooking at home, and drinking lots of water, he can not lose weight and his BMI weight is 35. He denies morning headaches, denies bruxism, parasomnias, flailing, thrashing behavior. [facility] Medical History Pure hypercholesterolemia, unspecified Essential (primary) hypertension Obesity, unspecified Solitary pulmonary nodule Panic disorder [episodic paroxysmal anxiety] Other migraine, not intractable, without status migrainosus Other synovitis and tenosynovitis, left shoulder Gastro-esophageal reflux disease without esophagitis Ophthalmoplegic migraine, not intractable Calcaneal spur, right foot Dorsalgia, unspecified Morbid (severe) obesity due to excess calories Social History Housing: House Patient Tobacco Use Status: Never used Tobacco e-Cigarette/Vaping Use: Never Used Advance Directives: No Advance Directives Information Provided: No Do you have a plan to hurt others: No Plan service: No Current occupational status: employed Cognitive needs: No Hearing needs: No Vision needs: No Physical Exam Vital Signs: Last Vital Signs Pulse 80 07/31/25 09:27 BP 130/90 H 07/31/25 09:27 Pulse Ox 96 07/31/25 09:27 Oxygen Delivery Method Room Air 07/31/25 09:27 BMI result Body Mass Index 35.1 Const General: cooperative, comfortable and no acute distress Nutritional Appearance: obese Orientation/consciousness: patient oriented x3 HEENT Face and sinus: Yes face symmetric Teeth and gingiva: other (Mallampti score 4) Eyes Pupils: Equal, round and reactive pupils present Neck Neck: Yes full ROM Resp Effort & Inspection: normal respiratory effort and able to speak in complete sentences Neuro General: patient oriented x3 and moves all extremities Cranial nerves: Yes Equal, round and reactive pupils present, Yes Normal accommodation reflex present, Yes Nystagmus not present, Yes Normal facial strength present, Yes Midline tongue present, Yes Ability to bilaterally rotate head present (ROM limited r>l) and Yes Ability to bilaterally elevate shoulders present Cognition (Neuro): normal cognition Gait exam (Neuro): Normal gait present Motor exam (neuro): 5/5 motor strength present throughout and Normal motor muscle tone present throughout Psych Appearance: grossly normal Speech and movement: Normal speech and movement present Attitude: cooperative Insight: Good insight present (Psych) Judgement: Good judgement present (Psych) Results Reviewed Results Reviewed: labs reviewed with pt Assessment & Plan Assessment & Plan (1) Excessive daytime sleepiness: Code(s): G47.19 - Other hypersomnia Category: Medical (2) Loud snoring: Code(s): R06.83 - Snoring Category: Medical (3) Multiple falls: Code(s): R29.6 - Repeated falls Category: Medical (4) Low vitamin D level: Comment: continue vit d 1000 units daily Code(s): R79.89 - Other specified abnormal findings of blood chemistry Category: Medical (5) Chronic fatigue: Code(s): R53.82 - Chronic fatigue, unspecified Category: Medical Plan EMG / NCS reviewed with pt. Ulnar Neuropathy, he has wrist braces and will consider PT in the future. HST to r/o prince Labs reviewed with pt. ENT evaluation pending, snoring due to enlarged tonsils. RLS? Sciatica will monitor, check ferritin. f/u in 2 months Orders: Orders Ferritin 07/31/25 R53.82 - Chronic fatigue, unspecified Vitamin B6 07/31/25 R53.82 - Chronic fatigue, unspecified Vitamin D 25-OH Total 07/31/25 R53.82 - Chronic fatigue, unspecified Patient Instructions: Please complete the following fasting labs to rule out deficiencies. CBC/CMP/ B12/ Vit D/ TSH/ Homocysteine and MMA/ Ferritin. Sleep Hygiene provided: set a scheduled bedtime and wake time to help regulate the circadian rhythm and balance the release of pituitary hormones. Sleep in a dark room, temperatures below 68 degrees, and no devices n bed. Limit caffeinated products 6 hours prior to bed, and limit fluids 2-4 hours prior to bed. Gentle night yoga, diffusing essential oils, and playing soft music can be relaxing. Coding Level of Care Code Est Pt Level 4 (72524) Diagnoses Excessive daytime sleepiness G47.19 Loud snoring R06.83 Multiple falls R29.6 Low vitamin D level R79.89 Chronic fatigue R53.82
[2025-07-31 09:27] VITALS: BP 130/90; PULSE 80; O2SAT 96; BMI 35.1
== END 2025-07-31 10:26 | disposition home or self-care (01) ==
LOC: HO.HSMS 09:25
PROVIDERS: PCP Family Medicine; Visit Provider Physician Assistant Medical
DX: G47.19 Other hypersomnia (principal); R06.83 Snoring; R29.6 Repeated falls; R79.89 Other specified abnormal findings of blood chemistry; R53.82 Chronic fatigue, unspecified
CPT/HCPCS: 99214

== ENCOUNTER → 2025-07-31 09:24 | Outpatient (BNVA) | payer OTHER, SELFPAY | PROVIDERS: PCP Family Medicine; Visit Provider Physician Assistant Medical | DX: G47.19 Other hypersomnia (principal); R06.83 Snoring; R29.6 Repeated falls; R79.89 Other specified abnormal findings of blood chemistry; R53.82 Chronic fatigue, unspecified | CPT/HCPCS: 99212 ==

== ENCOUNTER 2025-08-02 12:11 | Emergency (ER) | payer OTHER, SELFPAY ==
--- NOTE | ~2025-08-02 | XR_ITS ---
CLINICAL HISTORY: lac s p oven spring breaking 3 view left hand Comparison: None provided Findings: Bones intact. No dislocations. No significant loss of joint space or osteophytes. No erosions. No radiopaque foreign body. IMPRESSION: 1. No acute findings This document has been electronically signed by: Kaur Holbrook MD on 08/02/2025 12:57:11
--- NOTE | 2025-08-02 12:21 | ED_ITS ---
HPI - Extremity Injury (Upper) General Chief Complaint: Wound/Laceration Stated Complaint: thumb/ hand lac from oven Time Seen by Provider: 08/02/25 15:35 Source: patient, RN notes reviewed and old records reviewed Mode of arrival: ambulatory History of Present Illness ED Provider: oMlly Patel PA-C HPI narrative: 39-year-old male with a past medical history HLD, HTN, obesity, presenting to the ED complaining of left hand laceration s/p up in spring breaking often slicing hand [employer]. Tetanus up-to-date. Denies injury to other area, numbness, tingling, weakness Related Data Home Medications ?Medication ?Instructions ?Recorded ?Confirmed betamethasone dipropionate 0.05 % 1 appl topical BID 0 03/24/25 03/24/25 topical cream diclofenac sodium 1 % topical gel 2 g topical QID 01/18 (Arthritis Pain (diclofenac)) Previous Rx's ?Medication ?Instructions ?Recorded cholecalciferol (vitamin D3) 50 50 mcg PO DAILY low vi tamin d 06/02/25 mcg (2,000 unit) capsule levles 4 months #120 caps lisinopril 20 mg tablet 20 mg PO DAILY 90 days #90 t abs 07/03/25 lorazepam 0.5 mg tablet (Ativan) 0.5 mg PO Q8H PRN Anx iety #90 tabs 07/03/25 Allergies Allergy/AdvReac Type Severity Reaction Status Date / Time No Known Allergies Allergy Verified 08/02/25 12:24 Review of Systems Review of Systems: Yes all other systems are reviewed and are negative Constitutional: Constitutional: Reports as per [facility] Past Medical History Attestation statement: The following information was validated with the patient. Source: old records reviewed Medical History Pure hypercholesterolemia, unspecified Essential (primary) hypertension Obesity, unspecified Solitary pulmonary nodule Panic disorder [episodic paroxysmal anxiety] Other migraine, not intractable, without status migrainosus Other synovitis and tenosynovitis, left shoulder Gastro-esophageal reflux disease without esophagitis Ophthalmoplegic migraine, not intractable Calcaneal spur, right foot Dorsalgia, unspecified Morbid (severe) obesity due to excess calories Social History Social History Housing: House Patient Tobacco Use Status: Never used Tobacco e-Cigarette/Vaping Use: Never Used Advance Directives: No Advance Directives Information Provided: No Do you have a plan to hurt others: No Plan service: No Current occupational status: employed Cognitive needs: No Hearing needs: No Vision needs: No Physical Exam Vital Signs: Vital Signs: Last Vital Signs Temp 98 F 08/02/25 12:22 Pulse 93 08/02/25 12:22 Resp 18 08/02/25 12:22 BP 132/75 08/02/25 12:22 Pulse Ox 98 08/02/25 12:22 O2 Del Method Room Air 08/02/25 12:22 BMI result Body Mass Index 33.4 Const: General: cooperative, healthy appearing and no acute distress Orientation/consciousness: patient oriented x3 Limitations: no limitations HEENT: Head: Yes normal to inspection and Yes atraumatic Ears: hearing grossly normal bilaterally General nose exam: Normal external nose present Face and sinus: Yes normal facial exam Eyes: General: appearance normal, both eyes and all related structures EOM: EOMs intact bilaterally Neck: Neck: Yes normal visual inspection and Yes no meningeal signs Resp: Effort & Inspection: normal respiratory effort and no respiratory distress Cardio: Rate: regular rate Skin: Other: 2.5 cm laceration noted to left 1st digit just proximal to PIP. Underlying structures intact. Full range of motion intact. [id number] opposition intact. Sensation intact to light touch Rashes: no rashes Neuro: General: patient oriented x3, tone normal and no meningeal signs Cranial nerves: Yes CN's II-XII intact bilaterally Gait exam (Neuro): Normal gait present Extrem: General: Yes normal to inspection Course Course Course Narrative: This is a Rapid Medical Exam performed in triage by Molly Patel PA-C. Full HPI, ROS and PE to be performed by primary ED provider. 39 yo M w/pmhx HTN, HLD, presenting to the ED c/o laceration to L hand s/p oven spring breaking off and slicing / crushing hand [employer]. Tetanus UTD PE: +2.5 cm laceration to L hand 1st digit Plan: XR, suture repair XR hand LT min 3V IMPRESSION: 1. No acute findings Results discussed with patient including worrisome signs and symptoms and strict return precautions, and when to return to the emergency department. They verbalized understanding and feel safe for discharge at this time. Medical Decision Making Medical Decision Making MDM Narrative: 39-year-old male with a past medical history HLD, HTN, obesity, presenting to the ED complaining of left hand laceration s/p up in spring breaking often slicing hand [employer]. on exam vital signs stable, NAD, nontoxic appearing, physical exam as noted above. Concern for fracture and superficial laceration. Low suspicion for tendon/ligamental injury. No evidence of infection. Plan: X-ray, wound repair Please refer to course for remaining clinical decision making, interpretation of labs/imaging results, and discussions with consultants and/or family members. Differential Diagnosis Differential Diagnoses: The differential diagnosis associated with the presentation includes As above Independent Interpretation I performed an independent interpretation of an: Plain X-Ray ( my interpretation: Appears unremarkable) Radiology Impression Discussion of test interpretation with radiology: I have reviewed the radiologist's reading. External Record Review External record reviewed: Inpatient record, Office record, Outpatient record, Prior outpatient labs, Prior outpatient radiology, Primary care record and Outside ED record Tests considered The following testing was considered but not selected: As above Prescription Management I considered prescription management with: Pain Medication Chronic Conditions Patient?s care impacted by: Other Social Determinants Patient?s care significantly limited by Social Determinants of Health including: Other Social Determinant of Health Procedures Laceration Laceration 1: Site: hand Side (If applicable): left Size (cm): 2.5 Description: linear Depth: simple, single layer Local Anesthetic: lidocaine 1% Amount of anesthesia used (mL): 2 Pre-repair: wound explored, irrigated extensively and deep structures intact Skin layer closed with: nylon Size (cm): 4-0 Number of sutures: 4 Technique: simple, interrupted Discharge Plan Discharge Clinical Impression: Hand laceration Patient Disposition: Home, Self-Care Instructions: Laceration (DC) Additional Instructions: Your wounds were repaired today in the emergency department. Keep dry and clean. You need to return to any emergency department, urgent care, or your PCPs office in 7-10 days for suture removal Apply bacitracin and or Neosporin daily Once sutures are removed apply anti scar cream like Mederma If area begins look infected, is red, there is drainage, streaking, or you have fever please return to the emergency department Prescriptions: No Action lisinopril 20 mg tablet 20 mg PO DAILY 90 Days Qty: 90 1RF lorazepam [Ativan] 0.5 mg tablet 0.5 mg PO Q8H PRN (Reason: Anxiety) Qty: 90 0RF betamethasone dipropionate 0.05 % cream 1 appl topical BID cholecalciferol (vitamin D3) 50 mcg (2,000 unit) capsule 50 mcg PO DAILY MDD 50mcg 120 Days Qty: 120 2RF diclofenac sodium [Arthritis Pain (diclofenac)] 1 % gel 2 g topical QID Rx Instructions: apply to single elbow, wrist or hand; for hand includes palm/fingers/back of hand Referrals: [facility] [place] Emergency Medicine [Provider Group] - 1 week Referral Note: suture removal Denise Brian PA [Primary Care Provider, Hospitalist] - 1 week Referral Note: suture removal Print Language: Maltese
[2025-08-02 12:22] VITALS: BP 132/75; PULSE 93; RESP 18; TEMP 36.6; O2SAT 98; BMI 33.4
[2025-08-02] MEDS: Lidocaine HCl 1 % MPF 5 ML VIAL INFILTRATI (16:16)
[2025-08-02 16:20] VITALS: BP 132/75; PULSE 93; RESP 18; TEMP 36.6; O2SAT 98
== END 2025-08-02 16:28 | disposition home or self-care (01) ==
PROVIDERS: Emergency Provider Emergency Medicine; PCP Physician Assistant
DX: S61.412A Laceration without foreign body of left hand, initial encounter (principal); W45.8XXA Other foreign body or object entering through skin, initial encounter; Y93.G3 Activity, cooking and baking; Y92.000 Kitchen of unspecified non-institutional (private) residence as the place of occurrence of the external cause; Y99.9 Unspecified external cause status
CPT/HCPCS: 12001; 73130; 99282; 99284; J2003

== ENCOUNTER → 2025-08-02 12:23 | Outpatient (BNV) | payer OTHER, SELFPAY | PROVIDERS: PCP Family Medicine; Visit Provider Radiology Diagnostic Radiology | DX: S61.412A Laceration without foreign body of left hand, initial encounter (principal); X15.0XXA Contact with hot stove (kitchen), initial encounter | CPT/HCPCS: 73130 ==

== ENCOUNTER → 2025-08-12 07:56 | Outpatient (REF) | payer OTHER, SELFPAY ==
[2025-08-12 10:43] LABS: Ferritin 181 ng/mL (20-250)
[2025-08-12 10:55] LABS: Folate 9.9 ng/mL (> or = 4.0); Vitamin B12 240 pg/mL (200-900)
== END ==
LOC: HO.SL 07:56
PROVIDERS: PCP Physician Assistant; Visit Provider Physician Assistant Medical
DX: G47.19 Other hypersomnia (principal); R53.82 Chronic fatigue, unspecified
CPT/HCPCS: 36415; 82306; 82607; 82728; 82746; 83090; 83921; 84207; 84443

== ENCOUNTER → 2025-08-12 08:07 | Outpatient (BNV) | payer OTHER, SELFPAY | PROVIDERS: PCP Physician Assistant; Visit Provider Psychiatry & Neurology Neurology | DX: G47.33 Obstructive sleep apnea (adult) (pediatric) (principal) | CPT/HCPCS: 95806 ==

== ENCOUNTER 2025-08-12 08:11 | Emergency (ER) | payer OTHER, SELFPAY ==
[2025-08-12 08:22] VITALS: BP 145/85; PULSE 74; RESP 16; TEMP 36.3; O2SAT 96; BMI 32.9
--- NOTE | 2025-08-12 08:40 | ED_ITS ---
HPI - Wound/Laceration General Chief Complaint: Wound/Laceration Stated Complaint: suture removal Time Seen by Provider: 08/12/25 08:29 Source: patient Mode of arrival: ambulatory Limitations: no limitations History of Present Illness ED Provider: Peewee Thao PA-C HPI narrative: 39 yo male presenting for suture removal. He lacerated his hand on a hinge while trying to help fix his oven door at home 10 days ago. 4 sutures were placed here 10 days ago. tdap utd. He reports no issues with healing, no concern for infection. no pain. Onset (ago): day(s) Patient tetanus UTD: Yes Context: accidental Associated symptoms: none Related Data Home Medications ?Medication ?Instructions ?Recorded ?Confirmed betamethasone dipropionate 0.05 % 1 appl topical BID 0 03/24/25 03/24/25 topical cream diclofenac sodium 1 % topical gel 2 g topical QID 01/18 (Arthritis Pain (diclofenac)) Previous Rx's ?Medication ?Instructions ?Recorded cholecalciferol (vitamin D3) 50 50 mcg PO DAILY low vi tamin d 06/02/25 mcg (2,000 unit) capsule levles 4 months #120 caps lisinopril 20 mg tablet 20 mg PO DAILY 90 days #90 t abs 07/03/25 lorazepam 0.5 mg tablet (Ativan) 0.5 mg PO Q8H PRN Anx iety #90 tabs 07/03/25 Allergies Allergy/AdvReac Type Severity Reaction Status Date / Time No Known Allergies Allergy Verified 08/12/25 08:23 Review of Systems Review of Systems: Yes all other systems are reviewed and are negative PMFSH Past Medical History Medical History Pure hypercholesterolemia, unspecified Essential (primary) hypertension Obesity, unspecified Solitary pulmonary nodule Panic disorder [episodic paroxysmal anxiety] Other migraine, not intractable, without status migrainosus Other synovitis and tenosynovitis, left shoulder Gastro-esophageal reflux disease without esophagitis Ophthalmoplegic migraine, not intractable Calcaneal spur, right foot Dorsalgia, unspecified Morbid (severe) obesity due to excess calories Social History Social History Housing: House Patient Tobacco Use Status: Never used Tobacco e-Cigarette/Vaping Use: Never Used Advance Directives: No Advance Directives Information Provided: Yes service: No Current occupational status: employed Cognitive needs: No Hearing needs: No Vision needs: No Physical Exam Exam: Exam: Appearance: Alert. Oriented X3. No acute distress. HEENT: normal inspection CVS: Normal heart rate and rhythm. Pulses normal. Respiratory: No respiratory distress. Skin: Skin warm and dry. Normal skin color. Normal skin turgor. No rashes. Extremities: the web space between the left thumb there is a 2cm well healed laceration w/ [address] no dehiscence, no erythema, no discharge or drainage Neuro: Oriented X 3. grossly normal. NV intact left hand Vital Signs: Vital Signs: Last Vital Signs Temp 97.3 F 08/12/25 08:47 Pulse 74 08/12/25 08:47 Resp 16 08/12/25 08:47 BP 145/85 H 08/12/25 08:47 Pulse Ox 96 08/12/25 08:47 O2 Del Method Room Air 08/12/25 08:47 BMI result Body Mass Index 32.9 Medical Decision Making Medical Decision Making MDM Narrative: 39-year-old [id number] male presents to the ER for evaluation of a wound to his left hand, sustained 10 days ago requiring 4 sutures for repair. H e reports the wound is slightly itchy, this sutures are getting caught on things, he has been leaving it open to air. He denies any pain, discharge or opening of the wound. Area was cleaned with alcohol, 4 sutures were easily removed. Steri-Strips placed for additional wound support. wound care discussed w/ patient. Differential Diagnosis Differential Diagnoses: The differential diagnosis associated with the presentation includes well-healing wound, delayed wound healing, infection, dehiscence Critical Care Time Critical Care Time Critical Care Time: No Discharge Plan Discharge Clinical Impression: Laceration Patient Disposition: Home, Self-Care Instructions: Stitches Removal (ED) Additional Instructions: keep the steri strips in place for the next 2-3 days if possible keep clean and covered any concerns of the wound opening or infection call your doctor or come back to the ER Prescriptions: No Action lisinopril 20 mg tablet 20 mg PO DAILY 90 Days Qty: 90 1RF lorazepam [Ativan] 0.5 mg tablet 0.5 mg PO Q8H PRN (Reason: Anxiety) Qty: 90 0RF betamethasone dipropionate 0.05 % cream 1 appl topical BID cholecalciferol (vitamin D3) 50 mcg (2,000 unit) capsule 50 mcg PO DAILY MDD 50mcg 120 Days Qty: 120 2RF diclofenac sodium [Arthritis Pain (diclofenac)] 1 % gel 2 g topical QID Rx Instructions: apply to single elbow, wrist or hand; for hand includes palm/fingers/back of hand Interventions: ED Discharge Assessment Last Done: 08/12/25 08:47 Discharge Date/Time: 08/12/25 08:47 Print Language: [place]
[2025-08-12 08:47] VITALS: BP 145/85; PULSE 74; RESP 16; TEMP 36.3; O2SAT 96
== END 2025-08-12 08:47 | disposition home or self-care (01) ==
PROVIDERS: Emergency Provider Emergency Medicine Emergency Medical Services; PCP Physician Assistant
DX: S61.412D Laceration without foreign body of left hand, subsequent encounter (principal); Z48.02 Encounter for removal of sutures
CPT/HCPCS: 99282